=== PATIENT | female | born 1955 ===

== ENCOUNTER 2020-05-18 14:24 | Inpatient (IN) | payer OTHER ==
[~2020-05-18] VITALS: Ht 160 cm; Wt 72.6 kg
[2020-05-18] MEDS ORDERED: LANTUS SOL100 UNIT/1 (14:50)
== END 2020-05-24 14:32 | disposition home or self-care (01) | DRG 481 ==
LOC: ER 14:24 → SEC-K 20:03 → MEDI 20:03 → SURG 05-20 15:01
PROVIDERS: Orthopaedic Surgery; ADMIT Internal Medicine; ATTEND Internal Medicine
PROC: 4A033R1 Measurement of Arterial Saturation, Peripheral, Percutaneous Approach (ICD-10-PCS; 2020-05-19)
PROC: BW21ZZZ Computerized Tomography (CT Scan) of Abdomen and Pelvis (ICD-10-PCS; 2020-05-19)
PROC: 0SH Lower Joints, Insertion (ICD-10-PCS; principal; 2020-05-20 09:00)
DX: S72.031A Displaced midcervical fracture of right femur, initial encounter for closed fracture (principal); E87.3 Alkalosis; N39.0 Urinary tract infection, site not specified; E86.0 Dehydration; I10 Essential (primary) hypertension; E11.9 Type 2 diabetes mellitus without complications; Z20.828 Contact with and (suspected) exposure to other viral communicable diseases; Z79.4 Long term (current) use of insulin; Z03.818 Encounter for observation for suspected exposure to other biological agents ruled out

== ENCOUNTER 2020-09-29 11:21 | Outpatient (CLI) | payer OTHER ==
[~2020-09-29 11:21] MED LIST: LANTUS SOL100 UNIT/1
== END 2020-09-29 11:32 | disposition home or self-care (01) ==
LOC: RAD 11:21
PROVIDERS: ATTEND Orthopaedic Surgery
DX: M16.11 Unilateral primary osteoarthritis, right hip (principal); M54.5 Low back pain